=== PATIENT | female | born 1935 | race American Indian/Alaskan Native ===

== ENCOUNTER 2017-09-24 15:44 | Outpatient (CLI) | payer MEDICARE ==
--- NOTE | 2017-09-24 21:43 | XRay Report ---
FINAL REPORT EXAM: XR KNEE 4+V RT HISTORY: RIGHT KNEE PAIN TECHNIQUE: AP, sunrise, and lateral views of the right knee PRIORS: None. FINDINGS: No acute fracture or dislocation is seen. The soft tissues are unremarkable with no evidence for suprapatellar joint effusion. Mild osteopenia is present. There is severe joint space narrowing in the medial and patellofemoral joints with significant bony eburnation around these joints. There is moderate narrowing of the lateral joint compartment. Chondrocalcinosis is present in the lateral joint compartment suggesting CPPD disease. IMPRESSION: No acute abnormality of the right knee. 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
== END 2017-09-24 15:45 | disposition home or self-care (01) ==
LOC: SPVIMAG 15:44
PROVIDERS: ATTEND Orthopaedic Surgery Sports Medicine
DX: M17.11 Unilateral primary osteoarthritis, right knee (principal); M11.261 Other chondrocalcinosis, right knee; M85.861 Other specified disorders of bone density and structure, right lower leg; E11.9 Type 2 diabetes mellitus without complications; I10 Essential (primary) hypertension; E78.00 Pure hypercholesterolemia, unspecified; Z87.891 Personal history of nicotine dependence